=== PATIENT | male | born 1980 | race Two or more races ===

== ENCOUNTER 2017-09-28 18:09 | Emergency (ER) | payer SELFPAY ==
[~2017-09-28] VITALS: Ht 172.7 cm; Wt 84.0 kg
[2017-09-29] MEDS ORDERED: IBUPROFEN 600MG TABLET PO ONE (02:30)
[2017-09-29] MEDS ORDERED: LIDOCAINE 5% PATCH TOP SCH (02:30)
[2017-09-29 03:45] VITALS: BP 118/78
== END 2017-09-29 04:50 | disposition home or self-care (01) ==
LOC: ER 18:09
DX: M54.12 Radiculopathy, cervical region (principal); F41.9 Anxiety disorder, unspecified
CPT/HCPCS: 99283